=== PATIENT | female | born 1975 | race Caucasian/White ===

== ENCOUNTER → 2019-07-02 | Outpatient (CLI) | payer MEDICAID ==
--- NOTE | 2019-07-02 18:24 | Diagnostic Imaging Report ---
INDICATION: Bilateral nipple discharge. COMPARISON is made with prior mammogram from 11/19/2014. TECHNIQUE: 2D and 3D bilateral diagnostic mammography was performed with CAD. FINDINGS: Scattered fibroglandular densities are identified bilaterally. Intraparenchymal lymph nodes upper-outer aspects both breasts are stable. No new mass or malignant-appearing microcalcifications are seen. Axillae are unremarkable. IMPRESSION: BI-RADS Category 0 No mammographic features suspicious for malignancy are identified. Even so, directed sonographic interrogation of the retroareolar regions bilaterally is recommended and will be performed today Dictated by: Dictated on workstation # [id number]
--- NOTE | 2019-07-02 18:43 | Diagnostic Imaging Report ---
INDICATION: Bilateral nipple discharge. CORRELATION is made with diagnostic study earlier the same day. FINDINGS: Sonographic interrogation of the retroareolar regions of the bilateral breasts was performed. No sonographic abnormality was seen. No solid or cystic mass is detected. IMPRESSION: BI-RADS category 1. No sonographic abnormality is detected. ACR BI-RADS Category 1: Negative. Result letter will be mailed to the patient. Note: At least 10% of breast cancer is not imaged by mammography. Dictated by: Dictated on workstation # [id number]
== END ==
LOC: RAD 12:18
PROVIDERS: ATTEND Nurse Practitioner Family
DX: N64.3 Galactorrhea not associated with childbirth (principal); N64.52 Nipple discharge
CPT/HCPCS: 76642; 77066